=== PATIENT | female | born 1950 ===

== ENCOUNTER 2018-06-24 07:24 | Day surgery (SDC) | payer OTHER ==
[2018-06-23 12:02] VITALS: BMI 53.7
[2018-06-24] MEDS ORDERED: Lidocaine 4% (Laryng-O-Jet) Kit MM ONE (09:32)
[2018-06-24] MEDS ORDERED: Midazolam 2 MG/2 ML VIAL ONE ×3 (09:34→09:52)
[2018-06-24 10:32] VITALS: TEMP 97.7
[2018-06-24 12:09] VITALS: RESP 17
[2018-06-24 12:15] VITALS: BP 126/58; PULSE 69; O2SAT 99
== END 2018-06-24 12:00 | disposition home or self-care (01) ==
LOC: C.ENDO 07:24
PROVIDERS: ATTEND Internal Medicine Gastroenterology
DX: K29.50 Unspecified chronic gastritis without bleeding (principal); K26.7 Chronic duodenal ulcer without hemorrhage or perforation; I10 Essential (primary) hypertension; E66.9 Obesity, unspecified; Z68.43 Body mass index [BMI] 50.0-59.9, adult; Z79.84 Long term (current) use of oral hypoglycemic drugs; E11.21 Type 2 diabetes mellitus with diabetic nephropathy
CPT/HCPCS: 43239; 82948; 88305; 88313; 88342; J2001; J2250; J3010

== ENCOUNTER 2019-03-22 10:12 | Outpatient (CLI) | payer OTHER | END 2019-03-22 10:13 | disposition home or self-care (01) | LOC: C.USIC 10:12 | DX: R10.31 Right lower quadrant pain (principal) ==